=== PATIENT | female | born 1975 ===

== ENCOUNTER 2018-11-26 18:17 | Emergency (ER) | payer SELFPAY ==
[2018-11-26 18:49] VITALS: BP 110/52; PULSE 76; RESP 17; TEMP 98.5; O2SAT 98
--- NOTE | 2018-11-26 19:44 | ED PDOC ---
Upper Extremity Pain/Injury Time Seen by Provider: 11/26/18 18:49 Chief Complaint (Nursing): Abnormal Skin Integrity Chief Complaint (Provider): Left Hand Injury History Per: Patient History/Exam Limitations: no limitations Onset/Duration Of Symptoms: Other (yesterday night 2029) Current Symptoms Are (Timing): Still Present Additional Complaint(s): 43 year old female presents to the ED for evaluation of a left hand injury. Patient reports that last night around 2029 she was using a knife when she accidentally cut her left hand. When she woke up this morning, she noticed pain, swelling, and redness to the area. Otherwise, denies fever, chills, and any medication use. Tetanus up to date (x1 year ago) Past Medical History Reviewed: Historical Data, Nursing Documentation, Vital Signs Vital Signs: Last Vital Signs Temp 98.5 F 11/26/18 18:44 Pulse 76 11/26/18 18:44 Resp 17 11/26/18 18:44 BP 110/52 L 11/26/18 18:44 Pulse Ox 98 11/26/18 18:44 - Medical History PMH: Denies: Chronic Kidney Disease Other PMH: allergic rhinitis; ovarian cysts - Surgical History Surgical History: No Surg Hx - Family History Family History: States: Unknown Family Hx - Social History Current smoker - smoking cessation education provided: No Alcohol: None Drugs: Denies - Immunization History Hx Tetanus Toxoid Vaccination: Yes (x1 year ago) - Home Medications Home Medications: Ambulatory Orders Medication Instructions Recorded Fluconazole [Diflucan] 150 mg PO DAILY #1 tab 08/13/16 Clindamycin [Cleocin] 300 mg PO TID #20 cap 11/26/18 - Allergies Allergies/Adverse Reactions: Allergies Allergy/AdvReac Type Severity Reaction Status Date / Time No Known Allergies Allergy Verified 11/12/14 00:14 Review of Systems ROS Statement: Except As Marked, All Systems Reviewed And Found Negative Constitutional: Negative for: Fever, Chills Musculoskeletal: Positive for: Hand Pain (left hand pain, swelling, and redness) Physical Exam - Reviewed Nursing Documentation Reviewed: Yes Vital Signs Reviewed: Yes - Physical Exam Appears: Positive for: Well, Non-toxic, No Acute Distress Eye Exam: Positive for: Normal appearance Pulses-Radial (L): 2+ Pulses-Radial (R): 2+ Extremity: Positive for: Normal ROM (full actively of left thumb), Capillary Refill (less than 2 seconds), Other (small 0.5cm linear superficial laceration on left hand 1st interdigital web space with minimal surrounding erythema and minimal edema, but no fluctuance, induraton, active bleeding, or discharge) - ECG O2 Sat by Pulse Oximetry: 98 (RA) Pulse Ox Interpretation: Normal - Radiology X-Ray: Interpreted by Me (L hand x-ray) X-Ray Interpretation: No Acute Disease Medical Decision Making Medical Decision Making: Time: 1853 Initial Impression: left hand injury Initial Plan: --Clindamycin 300mg PO --Ibuprofen 600mg PO --Left hand XR Pt. informed that it is too late to close wound with sutures. Pt. states she would have refused sutures anyways. Wound irrigated heavily with NS. No deep structure involvement seen. Bacitracin ointment applied. DSD applied. Scribe Attestation: Documented by Arleen Comer, acting as a scribe for José Gooden PA-C. Provider Scribe Attestation: All medical record entries made by the Scribe were at my direction and personally dictated by me. I have reviewed the chart and agree that the record accurately reflects my personal performance of the history, physical exam, medical decision making, and the department course for this patient. I have also personally directed, reviewed, and agree with the discharge instructions and disposition. Disposition - Clinical Impression Clinical Impression: Hand laceration, Cellulitis - Patient ED Disposition Is Patient to be Admitted: No - Disposition Referrals: [facility] [Outside] Disposition: Routine/Home Disposition Time: 20:06 Condition: STABLE Additional Instructions: FOLLOW UP WITH YOUR DOCTOR FOR FURTHER EVALUATION RETURN TO ED IMMEDIATELY IF SYMPTOMS WORSEN UMAIR DEAN, thank you for letting us take care of you today. Your provider was Sarah Haddad MD and you were treated for LT HAND INJURY. The emergency medical care you received today was directed at your acute symptoms. If you were prescribed any medication, please fill it and take as di rected. It may take several days for your symptoms to resolve. Return to the Emergency Department if your symptoms worsen, do not improve, or if you have any other problems. Please contact your doctor or call one of the physicians/clinics you have been referred to that are listed on the Patient Visit Information form that is included in your discharge packet. Bring any paperwork you were given at discharge with you along with any medications you are taking to your follow up visit. Our treatment cannot replace ongoing medical care by a primary care provider outside of the emergency department. Thank you for allowing the [facility] team to be part of your care today. If you had an X-Ray or CT scan: A Radiologist will review the ED reading if any change in treatment is needed we will contact you. If you had a blood, urine, or wound culture: It will take several days for the results, if any change in treatment is needed we will contact you. If you had an STI test: It will take 48 hours for the results. Please call after 1 week if you have not heard back. Prescriptions: Clindamycin [Cleocin] 300 mg PO TID #20 cap Instructions: Wound Care (DC), Cellulitis (Skin Infection), Adult (DC) Forms: [facility] ED School/Work Excuse Print Language: IRISH
--- NOTE | 2018-11-27 09:30 | RAD ---
PROCEDURE: Left Hand Radiographs. HISTORY: trauma COMPARISON: None. FINDINGS: BONES: No acute fracture or destructive bony lesion identified. JOINTS: Normal. No osteoarthritic changes. SOFT TISSUES: Normal. OTHER FINDINGS: None. IMPRESSION: No acute fracture or destructive bony lesion identified.
== END 2018-11-26 20:43 | disposition home or self-care (01) ==
LOC: H.ER 18:17
DX: S61.412A Laceration without foreign body of left hand, initial encounter (principal); L03.114 Cellulitis of left upper limb; W26.0XXA Contact with knife, initial encounter